=== PATIENT | male | born 1970 | race Caucasian/White ===

== ENCOUNTER 2024-12-13 07:33 | Day surgery (SDC) | payer BC ==
[2024-12-11 13:24] VITALS: BMI 30.1
[2024-12-13] MEDS ORDERED: LIDOCAINE HCL/PF 2% SDV 5ML VIAL ONE (07:45)
[2024-12-13] MEDS ORDERED: PROPOFOL 160 ML ONE (07:46)
[2024-12-13 07:55] VITALS: TEMP 97.2
[2024-12-13 09:01] VITALS: BP 99/66; PULSE 63; RESP 19
== END 2024-12-13 08:55 | disposition home or self-care (01) ==
LOC: FASU-ENDO 07:33
PROVIDERS: ATTEND Internal Medicine Gastroenterology
PROC: 0DBK8ZZ Excision of Ascending Colon, Via Natural or Artificial Opening Endoscopic (ICD-10-PCS; principal; 2024-12-13 08:15)
DX: Z12.11 Encounter for screening for malignant neoplasm of colon (principal)
CPT/HCPCS: 88305-TC